=== PATIENT | male | born 1980 | race Caucasian/White ===

== ENCOUNTER 2016-08-04 20:10 | Emergency (ER) | payer OTHER ==
[2016-08-04 21:46] LABS: RED BLOOD COUNT 4.31 M/UL (4.20-5.50); WHITE BLOOD COUNT 4.9 K/UL (4.5-11.0)
[2016-08-04 21:58] LABS: BUN/CREATININE RATIO 13 (0-10)
== END 2016-08-04 23:30 | disposition home or self-care (01) ==
LOC: ER1 20:10
PROVIDERS: Family Medicine
DX: R07.9 Chest pain, unspecified (principal); R11.2 Nausea with vomiting, unspecified; R06.02 Shortness of breath; I10 Essential (primary) hypertension; J45.909 Unspecified asthma, uncomplicated; F41.9 Anxiety disorder, unspecified; F17.210 Nicotine dependence, cigarettes, uncomplicated; Z79.899 Other long term (current) drug therapy
CPT/HCPCS: 36415; 71020; 80053; 82550; 82553; 83874; 84484; 85025; 93005; 99285

== ENCOUNTER 2016-08-13 12:11 | Observation (INO) | payer OTHER ==
[~2016-08-13] VITALS: Ht 182.9 cm; Wt 86.0 kg
[2016-08-13 14:27] LABS: HEMOGLOBIN 15.8 gm/dl (14.0-17.5); RED BLOOD COUNT 4.8 M/UL (4.20-5.50); WHITE BLOOD COUNT 9.4 K/UL (4.5-11.0)
[2016-08-13 15:00] LABS: BUN/CREATININE RATIO 18 (0-10)
[2016-08-13] MEDS ORDERED: SUBOXONE 8 MG-1 EACH SL (21:26)
[2016-08-13] MEDS ORDERED: HYDROCHLOROTHIA25 MG PO (21:26)
== END 2016-08-14 16:40 | disposition home or self-care (01) ==
LOC: ER1 12:11 → ZEROF 16:51 → M/S 16:51
PROVIDERS: Emergency Medicine; ADMIT Internal Medicine
DX: R55 Syncope and collapse (principal); I10 Essential (primary) hypertension; F11.20 Opioid dependence, uncomplicated; R74.0 Nonspecific elevation of levels of transaminase and lactic acid dehydrogenase [LDH]; E87.1 Hypo-osmolality and hyponatremia; F17.210 Nicotine dependence, cigarettes, uncomplicated; Z79.899 Other long term (current) drug therapy
CPT/HCPCS: ECHO; 36415; 70450; 71010; 72125; 80053; 80074; 80307; 82550; 82553; 83874; 84484; 85025; 85379; 93005; 93306; 93880; 96360; 96361; 99285; G0378; J7030